=== PATIENT | male | born 1985 | race Caucasian/White ===

== ENCOUNTER → 2019-01-16 | Outpatient (CLI) | payer OTHER | LOC: M RAD 14:23 → M LAB 14:23 | PROVIDERS: ATTEND Physician Assistant Medical | DX: R10.9 Unspecified abdominal pain (principal) ==

== ENCOUNTER → 2019-05-31 | Outpatient (CLI) | payer OTHER | LOC: M RAD 13:43 | PROVIDERS: ATTEND Nurse Practitioner Family | DX: M54.16 Radiculopathy, lumbar region (principal) ==

== ENCOUNTER 2019-06-13 17:26 | Emergency (ER) | payer OTHER ==
[~2019-06-13] VITALS: Ht 180.3 cm; Wt 104.1 kg
[2019-06-13] MEDS ORDERED: VITA500045 PO (18:20)
[2019-06-13] MEDS ORDERED: ACET-683 PO (18:20)
[2019-06-13] MEDS ORDERED: SYMB16INH INH (18:20)
[2019-06-13] MEDS ORDERED: PROP80CA PO (18:20)
[2019-06-13] MEDS ORDERED: PROAAER10 (18:20)
[2019-06-13] MEDS ORDERED: ATOR80TA59 PO (18:20)
[2019-06-13] MEDS ORDERED: LISI-538 PO (18:20)
[2019-06-13] MEDS ORDERED: INDE80CA9 PO (18:20)
[2019-06-13] MEDS ORDERED: predniSONE 20 MG TAB PO ONE (19:00)
--- NOTE | 2019-06-13 19:36 | REP ---
Clinical: Shortness of breath . Comparison: None . Findings: The mediastinum and cardiac silhouette are stable and within normal limits for portable technique. The lung hendrix are clear without acute consolidation, effusion, or pneumothorax. Skeletal structures are intact. Impression: No acute cardiopulmonary process appreciated. Electronically Signed by Rohit Oneill MD 06/13/2019 07:28 P
[2019-06-13 19:46] LABS: INFLUENZA A AMPLIFICATION NEGATIVE (NEGATIVE); INFLUENZA B AMPLIFICATION NEGATIVE (NEGATIVE)
[2019-06-13] MEDS ORDERED: PRED20TA PO (19:55)
[2019-06-13 20:02] VITALS: BP 150/83
== END 2019-06-13 20:03 | disposition home or self-care (01) ==
LOC: M ED 17:26
DX: J45.901 Unspecified asthma with (acute) exacerbation (principal); J06.9 Acute upper respiratory infection, unspecified; I10 Essential (primary) hypertension; E78.5 Hyperlipidemia, unspecified; E78.00 Pure hypercholesterolemia, unspecified; F17.210 Nicotine dependence, cigarettes, uncomplicated; Z88.8 Allergy status to other drugs, medicaments and biological substances; Z79.899 Other long term (current) drug therapy

== ENCOUNTER 2019-07-18 08:21 | Emergency (ER) | payer OTHER ==
[~2019-07-18] VITALS: Ht 180.3 cm; Wt 103.9 kg
[~2019-07-18 08:21] MED LIST: ACET-683 PO; ATOR80TA59 PO; INDE80CA9 PO; LISI-538 PO; PRED20TA PO; PROAAER10; PROP80CA PO; SYMB16INH INH; VITA500045 PO
[2019-07-18] MEDS ORDERED: FLUO20CA22 PO (08:30)
[2019-07-18] MEDS ORDERED: methylPREDNISolone INJ 125 MG/2 ML VIAL (J2930) IV ONE (09:00)
[2019-07-18] MEDS: COMBIVENT RESPIMAT 100-20MCG INHALER 4GM INH SCH ×3 (09:37→10:17)
[2019-07-18 09:44] LABS: BASO # 0.1 10^3/uL (0.0-0.2); EOS # 0.3 10^3/uL (0.0-0.5); EOS % 4.9 % (0.0-3.0); HEMATOCRIT 45.8 % (42.0-52.0); HEMOGLOBIN 15.4 g/dl (13.5-17.5); LYMPH # 1.5 10^3/uL (1.5-5.0); LYMPH % 22.6 % (24.0-44.0); MEAN CORPUSCULAR HEMOGLOBIN 29.2 pg (27.0-33.0); MEAN CORPUSCULAR HGB CONC 33.6 g/dl (32.0-36.5); MEAN CORPUSCULAR VOLUME 86.7 fl (80.0-96.0); MONO # 0.6 10^3/uL (0.0-0.8); MONO % 9.4 % (0.0-5.0); NEUTROPHILS # 4.1 10^3/uL (1.5-8.5); NEUTROPHILS % 61.8 % (36.0-66.0); PLATELET COUNT, AUTOMATED 249 10^3/uL (150-450); RED BLOOD COUNT 5.28 10^6/uL (4.30-6.10); WHITE BLOOD COUNT 6.7 10^3/uL (4.0-10.0)
[2019-07-18 10:08] LABS: ALBUMIN 3.8 GM/DL (3.2-5.2); ALT/SGPT 38 U/L (12-78); BILIRUBIN,TOTAL 0.3 MG/DL (0.2-1.0); BLOOD UREA NITROGEN 12 MG/DL (7-18); CALCIUM LEVEL 8.7 MG/DL (8.5-10.1); CARBON DIOXIDE LEVEL 23 MEQ/L (21-32); CHLORIDE LEVEL 109 MEQ/L (98-107); CREATININE FOR GFR 0.89 MG/DL (0.70-1.30); FERRITIN 41 NG/ML (26-388); GLOMERULAR FILTRATION RATE > 60.0 (>60); GLUCOSE, FASTING 99 MG/DL (70-100); LDH LACTATE DEHYDROGENASE 169 U/L (87-241); POTASSIUM SERUM 4.3 MEQ/L (3.5-5.1); SODIUM LEVEL 139 MEQ/L (136-145); TOTAL PROTEIN 7.3 GM/DL (6.4-8.2)
[2019-07-18] MEDS ORDERED: PRED20TA PO (10:51)
[2019-07-18] MEDS ORDERED: PROAAER10 INH (10:58)
[2019-07-18 11:18] VITALS: BP 130/78
--- NOTE | 2019-07-18 12:05 | REP ---
CHEST: Single view. There is no evidence of acute infiltrate. No pleural effusion is seen. The heart is normal in size. The mediastinal silhouette is unremarkable. The visualized osseous structures are intact. IMPRESSION: No acute pulmonary disease. Electronically Signed by Richie Mathews MD 07/18/2019 12:30 P
== END 2019-07-18 11:19 | disposition home or self-care (01) ==
LOC: M ED 08:21
DX: J06.9 Acute upper respiratory infection, unspecified (principal); J45.901 Unspecified asthma with (acute) exacerbation; B34.9 Viral infection, unspecified; I10 Essential (primary) hypertension; E78.49 Other hyperlipidemia; Z88.8 Allergy status to other drugs, medicaments and biological substances; F17.218 Nicotine dependence, cigarettes, with other nicotine-induced disorders
CPT/HCPCS: 71045; 80053; 82728; 83615; 85025; 87040; 87486; 87581; 87633; 87798; 94640; 94664; 94760; 96374; 99284; J2930; U0002

== ENCOUNTER → 2020-02-06 | Outpatient (CLI) | payer OTHER ==
[~2020-02-06] MED LIST changes: +FLUO20CA22 PO; +PROAAER10 INH
== END ==
LOC: M RAD 09:30
PROVIDERS: ATTEND Nurse Practitioner Family
DX: K40.90 Unilateral inguinal hernia, without obstruction or gangrene, not specified as recurrent (principal); Z53.9 Procedure and treatment not carried out, unspecified reason

== ENCOUNTER 2020-05-22 19:27 | Emergency (ER) | payer OTHER ==
[~2020-05-22] VITALS: Ht 180.3 cm; Wt 100.0 kg
[~2020-05-22 19:27] MED LIST changes: -LISI-538 PO; +LISI20TA33 PO
[2020-05-22] MEDS ORDERED: predniSONE 20 MG TAB PO ONE (20:00)
[2020-05-22] MEDS ORDERED: PROAAER10 INH (20:19)
[2020-05-22] MEDS ORDERED: PRED20TA PO (20:19)
[2020-05-22] MEDS ORDERED: EASY-106 XX (20:19)
[2020-05-22] MEDS ORDERED: ALBU83IN INH (20:19)
[2020-05-22] MEDS: IPRATROPIUM 0.5MG/ALBUTEROL 2.5MG INH SOL UD 3ML (DUONEB) NEB PRN ×2 (21:10→21:35)
[2020-05-22] MEDS ORDERED: ALBUTEROL 90 MCG/ACT 8GM HFA INHALER INH ONE (21:55)
[2020-05-22 22:30] VITALS: BP 156/75
== END 2020-05-22 22:54 | disposition home or self-care (01) ==
LOC: M ED 19:27
DX: J45.901 Unspecified asthma with (acute) exacerbation (principal); F17.200 Nicotine dependence, unspecified, uncomplicated; Z88.6 Allergy status to analgesic agent

== ENCOUNTER 2020-07-08 16:03 | Emergency (ER) | payer OTHER ==
[~2020-07-08] VITALS: Ht 180.3 cm; Wt 104.1 kg
[~2020-07-08 16:03] MED LIST changes: +ALBU83IN INH; +EASY-106 XX; -PROAAER10
[2020-07-08 18:30] LABS: HEMATOCRIT 48.7 % (42.0-52.0); HEMOGLOBIN 16.6 g/dl (13.5-17.5); MEAN CORPUSCULAR HEMOGLOBIN 29.5 pg (27.0-33.0); MEAN CORPUSCULAR HGB CONC 34.1 g/dl (32.0-36.5); MEAN CORPUSCULAR VOLUME 86.7 fl (80.0-96.0); PLATELET COUNT, AUTOMATED 290 10^3/uL (150-450); RED BLOOD COUNT 5.62 10^6/uL (4.30-6.10); WHITE BLOOD COUNT 7.6 10^3/uL (4.0-10.0)
[2020-07-08 19:37] LABS: GLUCOSE, FASTING 91 MG/DL (70-100)
[2020-07-08 19:38] LABS: ALT/SGPT 56 IU/L (0-32); BILIRUBIN,DIRECT < 0.1 MG/DL (0.0-0.2); BILIRUBIN,TOTAL 0.3 MG/DL (0.2-1.0); BLOOD UREA NITROGEN 10 MG/DL (7-18); CALCIUM LEVEL 9.5 MG/DL (8.5-10.1); CARBON DIOXIDE LEVEL 24 mmol/L (20-29); CHLORIDE LEVEL 104 MEQ/L (98-107); CREATININE FOR GFR 0.87 MG/DL (0.70-1.30); GLOMERULAR FILTRATION RATE > 60.0 (>60); POTASSIUM SERUM 4.2 MEQ/L (3.5-5.1); SODIUM LEVEL 136 MEQ/L (136-145)
[2020-07-08 19:39] LABS: ACETAMINOPHEN LEVEL < 2.0 UG/ML (10.0-30.0); ALBUMIN 4.2 GM/DL (3.2-5.2); ETHYL ALCOHOL (ETHANOL) < 0.003 % (0.000-0.010); SALICYLATE LEVEL < 1.7 MG/DL (5.0-30.0); TOTAL PROTEIN 7.7 GM/DL (6.4-8.2)
[2020-07-08 20:34] LABS: AMPHETAMINES LEVEL URINE NEGATIVE (NEGATIVE); BARBITURATES URINE NEGATIVE (NEGATIVE); BENZODIAZEPINES URINE NEGATIVE (NEGATIVE); CANNABINOIDS URINE NEGATIVE (NEGATIVE); COCAINE METABOLITE URINE NEGATIVE (NEGATIVE); METHADONE URINE NEGATIVE (NEGATIVE)
[2020-07-08 20:35] LABS: OPIATES URINE NEGATIVE (NEGATIVE); PHENCYCLIDINE URINE NEGATIVE (NEGATIVE)
[2020-07-08] MEDS ORDERED: D31000TA2 PO (20:46)
[2020-07-08] MEDS ORDERED: PATIENT COMMENT (20:46)
[2020-07-08] MEDS ORDERED: ALBU83IN INH (20:46)
[2020-07-08] MEDS ORDERED: HALOPERIDOL 5MG/ML VIAL (J1630 PER 1) IM ONE (22:05)
[2020-07-08] MEDS ORDERED: LORazepam 2 MG/ML VIAL IM ONE (22:05)
[2020-07-08] MEDS ORDERED: diphenhydrAMINE 50MG/ML VIAL (J1200) IM ONE (22:05)
[2020-07-09] MEDS ORDERED: LISI40TA4 PO (09:47)
[2020-07-09] MEDS ORDERED: NICO2LOZ29 MT (09:47)
[2020-07-09] MEDS ORDERED: LORA-674 PO (09:47)
[2020-07-09] MEDS ORDERED: OMEP-221 PO (09:47)
[2020-07-09] MEDS ORDERED: IMIT50TA PO (09:47)
[2020-07-09 12:15] VITALS: BP 128/69
--- NOTE | 2020-07-09 12:35 | MHCR ---
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 Consult was called in the ER to evaluate the patient. HISTORY OF PRESENT ILLNESS: Patient was seen. His also was interviewed. According to the patient, he was under some stress of moving to [place], as his has been transferred to [place], who is also an active-duty soldier. He has been depressed for 1 month, but he had some suicidal thoughts, which were fleeting in nature but never had a plan. Yesterday he [facility] the [facility] He was prescribed medication, which is Prozac , did not start taking, he felt a little more depressed, and came to the ER. Now he thinks that he does not have any suicidal thoughts. He complained of some sleep disturbances. Otherwise, his appetite is fine. He does not feel hopeless or helpless. Denies any manic episodes in the past. The patient attempted suicide in 2012 with eight tablets of Tylenol. Otherwise, he has not taken any medications. Currently his mood is mildly depressed. MENTAL STATUS EXAMINATION: Casually dressed in hospital attire, cooperative. Made good eye contact. Psychomotor activity is normal. Mood is depressed. Affect is mildly anxious. Speech rate, rhythm, volume are good. At times he makes jokes. Thought process linear, goal directed. Thought content: Denied any suicidal or homicidal ideas. His memory, immediate, remote, recent, is good. Perception: Denies any hallucinations. Insight and judgment are fair to good. DIAGNOSIS: Depressive disorder, not otherwise specified, rule out adjustment disorder with depressed mood. PLAN: Discharge him home. [facility] has any [facility] thoughts he will come back to the ER. He will continue to take Prozac, which is prescribed to him. Both and understand the safety measures they are to take in case he has any suicidal thoughts. They reported that they will call 911 or come to the ER or go to [facility]. Patient will be discharged home. CHUCK
--- NOTE | 2020-07-09 19:50 | ECGEPIP ---
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
== END 2020-07-09 12:15 | disposition home or self-care (01) ==
LOC: M ED 16:03
DX: F33.9 Major depressive disorder, recurrent, unspecified (principal); I10 Essential (primary) hypertension; J45.909 Unspecified asthma, uncomplicated; E78.9 Disorder of lipoprotein metabolism, unspecified; K21.9 Gastro-esophageal reflux disease without esophagitis; F41.9 Anxiety disorder, unspecified; Z79.899 Other long term (current) drug therapy; Z88.8 Allergy status to other drugs, medicaments and biological substances

== ENCOUNTER → 2020-09-23 | Outpatient (REF) ==
[~2020-09-23] MED LIST changes: +D31000TA2 PO; +IMIT50TA PO; +LISI40TA4 PO; +LORA-674 PO; +NICO2LOZ29 MT; +OMEP-221 PO; +PATIENT COMMENT
--- NOTE | 2020-09-23 09:57 | REP ---
INDICATION: [facility] COMPARISON: 07/18/2019 TECHNIQUE: PA and lateral. FINDINGS: The mediastinum and cardiac silhouette are normal. The lung hendrix are clear and without acute consolidation, effusion, or pneumothorax. The skeletal structures are intact and normal. IMPRESSION: No acute cardiopulmonary process. <Electronically signed by Rohit Oneill > 09/23/20 [id number]
== END ==
LOC: M PLAIMG 08:14
PROVIDERS: ATTEND Internal Medicine
DX: Z00.00 Encounter for general adult medical examination without abnormal findings (principal)